=== PATIENT | female | born 1980 | race Caucasian/White ===

== ENCOUNTER 2017-02-26 17:54 | Emergency (ER) | payer MEDICAID ==
[~2017-02-26] VITALS: Ht 162.6 cm; Wt 45.7 kg
[2017-02-26 17:56] VITALS: BP 103/66
[2017-02-26] MEDS ORDERED: CYCLOBENZAPRINE 10 MG TABLET PO PRN (18:30)
[2017-02-26] MEDS ORDERED: CYCLOBENZAPRINE 10 MG TABLET ONE (18:35)
== END 2017-02-26 19:10 | disposition home or self-care (01) ==
LOC: ED 18:50
DX: S16.1XXA Strain of muscle, fascia and tendon at neck level, initial encounter (principal); M54.12 Radiculopathy, cervical region; F17.210 Nicotine dependence, cigarettes, uncomplicated; X58.XXXA Exposure to other specified factors, initial encounter; Y93.89 Activity, other specified; Y92.89 Other specified places as the place of occurrence of the external cause; Y99.8 Other external cause status
CPT/HCPCS: 72125; 99284; J7512

== ENCOUNTER 2017-05-08 21:28 | Emergency (ER) | payer MEDICAID ==
[~2017-05-08] VITALS: Ht 157.5 cm; Wt 45.9 kg
[2017-05-08 21:29] VITALS: BP 133/91
== END 2017-05-08 22:25 | disposition home or self-care (01) ==
LOC: ED 22:19
DX: S39.012A Strain of muscle, fascia and tendon of lower back, initial encounter (principal); F15.129 Other stimulant abuse with intoxication, unspecified; M54.2 Cervicalgia; F17.200 Nicotine dependence, unspecified, uncomplicated; Z88.8 Allergy status to other drugs, medicaments and biological substances; V09.9XXA Pedestrian injured in unspecified transport accident, initial encounter; Y93.89 Activity, other specified; Y92.488 Other paved roadways as the place of occurrence of the external cause; Y99.8 Other external cause status
CPT/HCPCS: 99283

== ENCOUNTER 2017-05-19 15:44 | Emergency (ER) | payer MEDICAID ==
[~2017-05-19] VITALS: Ht 162.6 cm; Wt 43.0 kg
[2017-05-19 15:51] VITALS: BP 124/89
== END 2017-05-19 16:51 | disposition left against medical advice (07) ==
LOC: ED 16:45
DX: F10.120 Alcohol abuse with intoxication, uncomplicated (principal); F15.10 Other stimulant abuse, uncomplicated
CPT/HCPCS: 99283

== ENCOUNTER 2017-05-19 17:17 | Emergency (ER) | payer MEDICAID | END 2017-05-19 17:43 | disposition left against medical advice (07) | LOC: ED 17:37 | DX: R52 Pain, unspecified (principal); Z53.21 Procedure and treatment not carried out due to patient leaving prior to being seen by health care provider ==